=== PATIENT | female | born 1980 | race Caucasian/White ===

== ENCOUNTER → 2017-01-06 | Outpatient (CLI) | payer BC ==
[2017-01-07 07:42] LABS: THYROID PEROXIDASE (TPO) AB 15 IU/mL (0-34)
[2017-01-07 10:58] LABS: THYROGLOBULIN AB <1.0 IU/mL (0.0-0.9)
== END ==
LOC: OD 09:29
PROVIDERS: ATTEND Internal Medicine
DX: Z86.39 Personal history of other endocrine, nutritional and metabolic disease (principal)
CPT/HCPCS: 36415; 84443; 86376

== ENCOUNTER 2017-02-18 19:42 | Emergency (ER) | payer BC ==
[2017-02-18 19:50] VITALS: BP 144/74
[2017-02-18] MEDS ORDERED: PREDNISONE 20 MG TABLET PO ONE (19:57)
[2017-02-18] MEDS ORDERED: FAMOTIDINE 20 MG TABLET PO ONE (19:57)
[2017-02-18] MEDS ORDERED: DIPHENHYDRAMINE HCL 50 MG CAPSULE PO ONE (19:57)
--- NOTE | 2017-02-18 20:03 | ER Document Report ---
ED General - General Chief Complaint: Allergic Reaction Stated Complaint: ALLERGIC REACTION TRAVEL OUTSIDE OF THE [place] 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 Patient felt the insect sting her in the center of her back. Patient carries an EpiPen in her car and her purse quickly gave herself an intramuscular shot in her thigh. Patient presents now with only a mild lump in the upper part of her back negative for respiratory issues no throat swelling no mouth swelling no abdominal pain nausea or vomiting. - Related Data Allergies/Adverse Reactions: bee venom protein (honey bee) Allergy (Verified 02/18/17 19:52) Home Medications: Current Home Medications Amitriptyline HCl 25 mg PO DAILY 02/18/17 [History] Desog-E.estradiol/E.estradiol [Azurette 28 Day Tablet] 1 tab PO DAILY 02/18/17 [ History] Rizatriptan Benzoate [Rizatriptan] 1 tab PO PRN PRN 02/18/17 [History] Past Medical History - Social History Smoking Status: Unknown if Ever Smoked Family History: Reviewed & Not Pertinent Patient has suicidal ideation: No Patient has homicidal ideation: No Renal/ Medical History: Denies: Hx Peritoneal Dialysis Review of Systems - Review of Systems Constitutional: No symptoms reported EENT: No symptoms reported. denies: Throat swelling, Mouth swelling Cardiovascular: No symptoms reported. denies: Palpitations Respiratory: No symptoms reported. denies: Cough, Wheezing Gastrointestinal: denies: Diarrhea, Nausea, Vomiting Musculoskeletal: Other - minimal pain at site of sting Skin: denies: Rash Hematologic/Lymphatic: denies: Enlarged lymph nodes Neurological/Psychological: denies: Tingling Physical Exam - Vital signs Vitals: Temp Pulse Resp BP Pulse Ox 97.6 F 90 18 144/74 H 100 02/18/17 19:46 02/18/17 19:46 02/18/17 19:46 02/18/17 19:46 02/18/17 19:46 Interpretation: Normal - General General appearance: Appears well, Alert - HEENT Head: Normocephalic, Atraumatic Eyes: Normal Pupils: PERRL - Respiratory Respiratory status: No respiratory distress Chest status: Nontender Breath sounds: Normal Chest palpation: Normal - Cardiovascular Rhythm: Regular Heart sounds: Normal auscultation Murmur: No - Abdominal Inspection: Normal Distension: No distension Bowel sounds: Normal Tenderness: Nontender Organomegaly: No organomegaly - Back Back: Normal, Nontender Notes: Mild isolated area mild induration no overlying skin changes, no stinger noted in wound - Extremities General upper extremity: Normal inspection, Nontender, Normal color, Normal ROM , Normal temperature General lower extremity: Normal inspection, Nontender, Normal color, Normal ROM , Normal temperature, Normal weight bearing. No: Zev's sign - Neurological Neuro grossly intact: Yes Cognition: Normal Orientation: AAOx4 [place] Coma Scale Eye Opening: Spontaneous Deann Coma Scale Verbal: Oriented [place] Coma Scale Motor: Obeys Commands [place] Coma Scale Total: 15 Speech: Normal Motor strength normal: LUE, RUE, LLE, RLE Sensory: Normal - Psychological Associated symptoms: Normal affect, Normal mood - Skin Skin Temperature: Warm Skin Moisture: Dry Skin Color: Normal Course - Re-evaluation Re-evalutation: 02/18/17 20:00 Appearing female presents after minor envenomation by wasp. Patient herself EpiPen. She is now an hour and a half status post examination. Patient given oral Benadryl, famotidine, prednisone in the emergency department. Patient feeling much improved will be discharged home with prescription for additional EpiPen - Vital Signs Vital signs: Temp Pulse Resp BP Pulse Ox 97.6 F 90 18 144/74 H 100 02/18/17 19:46 02/18/17 19:46 02/18/17 19:46 02/18/17 19:46 02/18/17 19:46 Discharge - Discharge Clinical Impression: Allergic reaction Qualifiers: Encounter type: initial encounter Qualified Code(s): T78.40XA - Allergy, unspecified, initial encounter Instructions: Anaphylaxis Kit ([facility]) Prescriptions: Epinephrine [Epipen 2-Garrett] 0.3 mg IM ONCE PRN #1 ml PRN Reason: Allergic reaction
== END 2017-02-18 20:05 | disposition home or self-care (01) ==
LOC: ER 19:42
DX: T63.461A Toxic effect of venom of wasps, accidental (unintentional), initial encounter (principal); T78.40XA Allergy, unspecified, initial encounter; Z79.899 Other long term (current) drug therapy; W57.XXXA Bitten or stung by nonvenomous insect and other nonvenomous arthropods, initial encounter
CPT/HCPCS: 99283; J7512

== ENCOUNTER → 2017-11-02 | Outpatient (CLI) | payer BC ==
[2017-11-02 08:23] LABS: ABSOLUTE BASOPHILS # (AUTO) 0.1 10^3/uL (0.0-0.2); ABSOLUTE EOSINOPHILS # (AUTO) 0.1 10^3/uL (0.0-0.6); ABSOLUTE LYMPHOCYTES (AUTO) 2.1 10^3/uL (0.5-4.7); ABSOLUTE MONOCYTES (AUTO) 0.4 10^3/uL (0.1-1.4); ABSOLUTE NEUT (AUTO) 2.6 10^3/uL (1.7-8.2); EOSINOPHILS % (AUTO) 2.4 % (0-6); HEMATOCRIT 39.2 % (36.0-47.0); HEMOGLOBIN 13.7 g/dL (12.0-15.5); LYMPHOCYTES % (AUTO) 39.8 % (13-45); MEAN CORPUSCULAR HEMOGLOBIN 30.3 pg (27.0-33.4); MEAN CORPUSCULAR VOLUME 87 fl (80-97); MONOCYTES % (AUTO) 8.3 % (3-13); PLATELET COUNT 346 10^3/uL (150-450); RED BLOOD COUNT 4.52 10^6/uL (3.72-5.28); RED CELL DISTRIBUTION WIDTH 12.6 % (11.5-14.0); SEGMENTED NEUTROPHILS % (AUTO) 48.5 % (42-78); TOTAL CELLS COUNTED % (AUTO) 100 %; WHITE BLOOD COUNT 5.3 10^3/uL (4.0-10.5)
[2017-11-02 08:45] LABS: ALANINE AMINOTRANSFERASE 39 U/L (9-52); ALBUMIN 4.2 g/dL (3.5-5.0); ALKALINE PHOSPHATASE 60 U/L (38-126); ANION GAP 12 (5-19); ASPARTATE AMINO TRANSFERASE 38 U/L (14-36); BILIRUBIN,DIRECT 0.2 mg/dL (0.0-0.4); BILIRUBIN,TOTAL 0.5 mg/dL (0.2-1.3); BLOOD UREA NITROGEN 8 mg/dL (7-20); CALCIUM 10.1 mg/dL (8.4-10.2); CARBON DIOXIDE 25 mmol/L (22-30); CHLORIDE 104 mmol/L (98-107); CHOLESTEROL 210.16 mg/dL (0-200); GLUCOSE 93 mg/dL (75-110); POTASSIUM 5.1 mmol/L (3.6-5.0); SODIUM 140.7 mmol/L (137-145); TRIGLYCERIDES 203 mg/dL (<150)
[2017-11-02 08:56] LABS: DIRECT LDL 108 mg/dL (<100)
[2017-11-02 08:58] LABS: VLDL CHOLESTEROL 40.6 mg/dL (10-31)
== END ==
LOC: OD 07:45
PROVIDERS: ATTEND Family Medicine Geriatric Medicine
DX: G43.909 Migraine, unspecified, not intractable, without status migrainosus (principal); E05.00 Thyrotoxicosis with diffuse goiter without thyrotoxic crisis or storm; E78.1 Pure hyperglyceridemia; E66.3 Overweight; Z79.899 Other long term (current) drug therapy
CPT/HCPCS: 36415; 80053; 80061; 84443; 85025

== ENCOUNTER → 2017-11-13 | Outpatient (CLI) | payer BC ==
[2017-11-13 09:38] LABS: POTASSIUM 5.1 mmol/L (3.6-5.0)
== END ==
LOC: OD 08:46
PROVIDERS: ATTEND Family Medicine Geriatric Medicine
DX: E87.5 Hyperkalemia (principal); E78.5 Hyperlipidemia, unspecified; R74.8 Abnormal levels of other serum enzymes; Z79.899 Other long term (current) drug therapy
CPT/HCPCS: 36415; 84132; 84450

== ENCOUNTER → 2018-04-23 | Outpatient (CLI) | payer BC | LOC: OD 07:25 | PROVIDERS: ATTEND Family Medicine Geriatric Medicine | DX: E87.5 Hyperkalemia (principal); Z79.899 Other long term (current) drug therapy | CPT/HCPCS: 36415; 84132 ==

== ENCOUNTER → 2018-08-24 | Outpatient (CLI) | payer BC ==
[2018-08-24 08:07] LABS: ABSOLUTE BASOPHILS # (AUTO) 0.1 10^3/uL (0.0-0.2); ABSOLUTE EOSINOPHILS # (AUTO) 0.1 10^3/uL (0.0-0.6); ABSOLUTE LYMPHOCYTES (AUTO) 2.1 10^3/uL (0.5-4.7); ABSOLUTE MONOCYTES (AUTO) 0.4 10^3/uL (0.1-1.4); ABSOLUTE NEUT (AUTO) 2.1 10^3/uL (1.7-8.2); BASOPHILS % (AUTO) 1.4 % (0-2); HEMATOCRIT 39.2 % (36.0-47.0); HEMOGLOBIN 13.3 g/dL (12.0-15.5); LYMPHOCYTES % (AUTO) 43.7 % (13-45); MEAN CORPUSCULAR HEMOGLOBIN 29.7 pg (27.0-33.4); MEAN CORPUSCULAR VOLUME 87 fl (80-97); PLATELET COUNT 363 10^3/uL (150-450); RED BLOOD COUNT 4.49 10^6/uL (3.72-5.28); RED CELL DISTRIBUTION WIDTH 12.6 % (11.5-14.0); SEGMENTED NEUTROPHILS % (AUTO) 43.9 % (42-78); TOTAL CELLS COUNTED % (AUTO) 100 %; WHITE BLOOD COUNT 4.7 10^3/uL (4.0-10.5)
[2018-08-24 08:24] LABS: ALANINE AMINOTRANSFERASE 36 U/L (9-52); ANION GAP 11 (5-19); BLOOD UREA NITROGEN 6 mg/dL (7-20); CALCIUM 9.6 mg/dL (8.4-10.2); CARBON DIOXIDE 24 mmol/L (22-30); CHLORIDE 105 mmol/L (98-107); CHOLESTEROL 173.08 mg/dL (0-200); GLUCOSE 81 mg/dL (75-110); POTASSIUM 4.5 mmol/L (3.6-5.0); SODIUM 140.4 mmol/L (137-145); TRIGLYCERIDES 119 mg/dL (<150)
[2018-08-24 08:45] LABS: DIRECT LDL 99 mg/dL (<100)
== END ==
LOC: OD 07:09
PROVIDERS: ATTEND Family Medicine Geriatric Medicine
DX: E78.5 Hyperlipidemia, unspecified (principal); E87.5 Hyperkalemia; Z79.899 Other long term (current) drug therapy
CPT/HCPCS: 36415; 80048; 80061; 84443; 84460; 85025

== ENCOUNTER → 2019-01-28 | Outpatient (CLI) | payer BC | LOC: OD 10:55 | PROVIDERS: ATTEND Family Medicine Geriatric Medicine | DX: E05.00 Thyrotoxicosis with diffuse goiter without thyrotoxic crisis or storm (principal); Z79.899 Other long term (current) drug therapy | CPT/HCPCS: 36415; 84443 ==

== ENCOUNTER → 2019-08-09 | Outpatient (CLI) | payer BC ==
[2019-08-09 08:09] LABS: ABSOLUTE BASOPHILS # (AUTO) 0.1 10^3/uL (0.0-0.2); ABSOLUTE EOSINOPHILS # (AUTO) 0.1 10^3/uL (0.0-0.6); ABSOLUTE LYMPHOCYTES (AUTO) 2.1 10^3/uL (0.5-4.7); ABSOLUTE MONOCYTES (AUTO) 0.4 10^3/uL (0.1-1.4); ABSOLUTE NEUT (AUTO) 2.6 10^3/uL (1.7-8.2); BASOPHILS % (AUTO) 1.2 % (0-2); EOSINOPHILS % (AUTO) 2.6 % (0-6); HEMATOCRIT 39.6 % (36.0-47.0); HEMOGLOBIN 13.5 g/dL (12.0-15.5); LYMPHOCYTES % (AUTO) 39.9 % (13-45); MEAN CORPUSCULAR HEMOGLOBIN 29.8 pg (27.0-33.4); MEAN CORPUSCULAR HGB CONC 34.1 g/dL (32.0-36.0); MEAN CORPUSCULAR VOLUME 88 fl (80-97); MONOCYTES % (AUTO) 7.3 % (3-13); PLATELET COUNT 321 10^3/uL (150-450); RED BLOOD COUNT 4.53 10^6/uL (3.72-5.28); RED CELL DISTRIBUTION WIDTH 12.6 % (11.5-14.0); TOTAL CELLS COUNTED % (AUTO) 100 %; WHITE BLOOD COUNT 5.2 10^3/uL (4.0-10.5)
[2019-08-09 08:41] LABS: ANION GAP 9 (5-19); ASPARTATE AMINO TRANSFERASE 26 U/L (14-36); BLOOD UREA NITROGEN 10 mg/dL (7-20); CALCIUM 9.7 mg/dL (8.4-10.2); CARBON DIOXIDE 26 mmol/L (22-30); CHLORIDE 103 mmol/L (98-107); GLUCOSE 99 mg/dL (75-110); POTASSIUM 4.5 mmol/L (3.6-5.0)
== END ==
LOC: OD 07:03
PROVIDERS: ATTEND Family Medicine Geriatric Medicine
DX: E05.00 Thyrotoxicosis with diffuse goiter without thyrotoxic crisis or storm (principal); E78.5 Hyperlipidemia, unspecified; G43.909 Migraine, unspecified, not intractable, without status migrainosus
CPT/HCPCS: 36415; 80048; 84443; 84450; 84460; 85025

== ENCOUNTER 2019-11-13 17:56 | Emergency (ER) | payer BC ==
--- NOTE | 2019-11-13 18:44 | ER Document Report ---
ED Medical Screen (RME) - General Chief Complaint: Dog Bite Stated Complaint: DOG BITE/LEFT INDEX FINGER Time Seen by Provider: 11/13/19 18:42 Primary Care Provider: DEREJE SPEAR MD [Primary Care Provider] - Follow up as needed Mode of Arrival: Ambulatory Information source: Patient Notes: 39-year-old female presented to ED for dog bite to the left index finger. She states she just got a new dog and a new dog in the old dog were having her first and the old dog bit the new dog. She states she was trying to clean the new dog up when the dog bit her. She does have a large laceration to the left index finger. She states her jaw and her immunizations are up-to-date. Bleeding is under control at this time. She will probably need a few sutures to hold this together after she gets an x-ray to ensure there is no fracture. I have greeted and performed a rapid initial assessment of this patient. A comprehensive ED assessment and evaluation of the patient, analysis of test results and completion of medical decision making process will be conducted by an additional ED providers. TRAVEL OUTSIDE OF THE [place] IN LAST 30 DAYS: No - Related Data Allergies/Adverse Reactions: venom-wasp Allergy (Intermediate, Verified 11/13/19 18:21) Hives Home Medications: amitriptyline Past Medical History - Social History Chew tobacco use (# tins/day): No Frequency of alcohol use: Social Drug Abuse: None Neurological Medical History: Reports: Hx Migraine Renal/ Medical History: Denies: Hx Peritoneal Dialysis Physical Exam - Vital signs Vitals: Temp Pulse Resp BP Pulse Ox 97.7 F 66 18 120/67 100 11/13/19 18:02 11/13/19 18:02 11/13/19 18:02 11/13/19 18:02 11/13/19 18:02 Course - Vital Signs Vital signs: Temp Pulse Resp BP Pulse Ox 97.7 F 66 18 120/67 100 11/13/19 18:22 11/13/19 18:02 11/13/19 18:02 11/13/19 18:02 11/13/19 18:02 Doctor's Discharge - Discharge Referrals: DEREJE SPEAR MD [Primary Care Provider] - Follow up as needed
--- NOTE | 2019-11-13 19:06 | RADIOLOGY REPORT (SQ) ---
EXAM DESCRIPTION: FINGER LEFT IMAGES COMPLETED DATE/TIME: 11/13/2019 6:56 pm REASON FOR STUDY: Dog bite to the left index finger COMPARISON: None. NUMBER OF VIEWS: Three views. TECHNIQUE: AP, lateral, and oblique images acquired of the left second finger. LIMITATIONS: None. FINDINGS: MINERALIZATION: Normal. BONES: Nondisplaced distal tuft fracture, distal phalanx, second digit. Soft tissue swelling and in jury. SOFT TISSUES: No soft tissue swelling. No foreign body. OTHER: No other significant finding. IMPRESSION: 1. Nondisplaced distal tuft fracture, distal phalanx, second digit. TECHNICAL DOCUMENTATION: JOB ID: [id number] 2010 [employer]- All Rights Reserved Reading location - IP/workstation name: [email or web address]
[2019-11-13] MEDS ORDERED: LIDOCAINE 1% INJ-PF (10 MG/ML) 30 ML SDV INJ ONE (20:44)
[2019-11-13] MEDS ORDERED: HYDROCODONE/ACETAMINOPHEN 5-325 MG TABLET PO ONE (20:44)
[2019-11-13] MEDS ORDERED: ACETAMINOPHEN 325 MG TABLET PO ONE (20:45)
[2019-11-13] MEDS ORDERED: IBUPROFEN 600 MG TABLET PO ONE (20:45)
--- NOTE | 2019-11-13 20:51 | ER Document Report ---
ED General - General Chief Complaint: Dog Bite Stated Complaint: DOG BITE/LEFT INDEX FINGER Time Seen by Provider: 11/13/19 18:42 Primary Care Provider: DEREJE SPEAR MD [Primary Care Provider] - Follow up as needed TORIE JACKSON DO [ACTIVE STAFF] - Follow up in 3-5 days Mode of Arrival: Ambulatory Notes: 39-year-old healthy female presents the emergency department for a dog bite on her left index finger sustained prior to arrival. Her dogs got into a fight and she was trying to clean up 1 of the dogs wounds when the dog nipped at her and bit her. There was some bleeding but bleeding has stopped. Patient is able to move her finger and has intact sensation. Tetanus is current. No other complaints TRAVEL OUTSIDE OF THE [place] IN LAST 30 DAYS: No - Related Data Allergies/Adverse Reactions: venom-wasp Allergy (Intermediate, Verified 11/13/19 18:21) Hives Home Medications: amitriptyline Past Medical History - General Information source: Patient - Social History Smoking Status: Never Smoker Chew tobacco use (# tins/day): No Frequency of alcohol use: Social Drug Abuse: None Family History: Reviewed & Not Pertinent Patient has suicidal ideation: No Patient has homicidal ideation: No Neurological Medical History: Reports: Hx Migraine Renal/ Medical History: Denies: Hx Peritoneal Dialysis Review of Systems - Review of Systems Constitutional: No symptoms reported EENT: No symptoms reported Cardiovascular: No symptoms reported Respiratory: No symptoms reported Gastrointestinal: No symptoms reported Genitourinary: No symptoms reported Female Genitourinary: No symptoms reported Musculoskeletal: See HPI Skin: See HPI Hematologic/Lymphatic: No symptoms reported Neurological/Psychological: No symptoms reported Physical Exam - Vital signs Vitals: Temp Pulse Resp BP Pulse Ox 97.7 F 66 18 120/67 100 11/13/19 18:02 11/13/19 18:02 11/13/19 18:02 11/13/19 18:02 11/13/19 18:02 - Notes Notes: PHYSICAL EXAMINATION: Reviewed vital signs and charting by RN GENERAL: Alert, interacts well. No acute distress. HEAD: Normocephalic, atraumatic. EYES: Pupils equal and round. Extraocular movements intact. ENT: Oral mucosa moist NECK: Full range of motion. Trachea midline. EXTREMITIES: Moves all 4 extremities spontaneously. Tenderness to palpation over the left index finger and area of the laceration no edema, No cyanosis. F lexor and extensor tendons intact left index finger. PSYCH: Normal affect, normal mood. SKIN: Warm, dry, normal turgor. 2 cm laceration on the medial aspect of the distal phalanx of the left index finger. There is nail involvement but nail is grossly intact in the nailbed is uninvolved. No bleeding noted Course - Re-evaluation Re-evalutation: 11/13/19 20:54 Patient is well-appearing in no acute distress. X-ray shows a distal tuft fracture of the left index finger. Plan is to perform primary closure with 5-0 Ethilon, placed the finger in splint, and put her on prophylactic antibiotics. Patient is current tetanus. I will give her referral for the surgery clinic. 11/13/19 22:16 Primary closure performed on the left index finger. Digital block was performed using lidocaine 1% without epinephrine. Patient tolerated procedure well. Patient with a normal distal neurovascular exam post procedure. Patient with flexor and extensor tendons intact. Patient has been instructed to follow-up with orthopedics in the next 3 to 5 days for the tuft fracture. Able for discharge. - Vital Signs Vital signs: Temp Pulse Resp BP Pulse Ox 97.7 F 66 18 120/67 100 11/13/19 18:22 11/13/19 18:02 11/13/19 18:02 11/13/19 18:02 11/13/19 18:02 Procedures - Laceration/Wound Repair Left Hand 2nd digit Wound length (cm): 3 Wound's Depth, Shape: Irregular Laceration pre-procedure: Sterile PPE donned Anesthetic type: 1% Lidocaine Wound explored: Clean Wound Debrided: Minimal Wound Repaired With: Sutures Suture Size/Type: 5:0, Ethilon Post-procedure wound care: Sterile dressing applied, Splint applied Post-procedure NV exam normal: Yes Discharge - Discharge Clinical Impression: Closed fracture of tuft of distal phalanx of finger, Laceration Condition: Good Disposition: HOME, SELF-CARE Additional Instructions: Please return to your primary doctor, the ED, or an urgent care in 7 days for suture removal. Return immediately if you develop spreading redness around the wound, pus from the wound, worsening pain, or a fever of >101. Keep the area clean and dry. Wash gently with soap and water twice daily and cover with antibiotic ointment. Because you have an open fracture you are being put on a 5-day course of Augmentin for prophylaxis. I have also given you information for the surgery clinic. Please call them in the next 48 to 72 hours for further guidance. Prescriptions: Amoxicillin/Potassium Clav [Augmentin 875-125 Tablet] 1 tab PO Q12 #10 tablet Referrals: DEREJE SPEAR MD [Primary Care Provider] - Follow up as needed TORIE JACKSON DO [ACTIVE STAFF] - Follow up in 3-5 days
[2019-11-13] MEDS ORDERED: HYDROCODONE/ACETAMINOPHEN 5-325 MG (6 TAB/ER DISP) PO PRN (22:13)
[2019-11-13 22:46] VITALS: BP 128/78
== END 2019-11-13 22:45 | disposition home or self-care (01) ==
LOC: ER 17:56
DX: S62.661A Nondisplaced fracture of distal phalanx of left index finger, initial encounter for closed fracture (principal); S61.351A Open bite of left index finger with damage to nail, initial encounter; W54.0XXA Bitten by dog, initial encounter; Y93.K9 Activity, other involving animal care; Y92.009 Unspecified place in unspecified non-institutional (private) residence as the place of occurrence of the external cause; Z79.899 Other long term (current) drug therapy; Z91.038 Other insect allergy status
CPT/HCPCS: 99283; 73140; 12002; J3490

== ENCOUNTER → 2019-12-21 | Outpatient (CLI) | payer BC | LOC: OD 09:28 | PROVIDERS: ATTEND Family Medicine Geriatric Medicine | DX: E05.00 Thyrotoxicosis with diffuse goiter without thyrotoxic crisis or storm (principal); Z79.899 Other long term (current) drug therapy | CPT/HCPCS: 36415; 84443 ==

== ENCOUNTER → 2020-01-13 | Outpatient (CLI) | payer BC ==
--- NOTE | 2020-01-13 14:32 | RADIOLOGY REPORT (SQ) ---
EXAM DESCRIPTION: U/S THYROID/SFT TISS HD NECK IMAGES COMPLETED DATE/TIME: 01/13/2020 8:47 am REASON FOR STUDY: HYPOTHYROIDISM, UNSPEC (E03.9) E03.9 HYPOTHYROIDISM, UNSPECIFIED COMPARISON: None. TECHNIQUE: Dynamic and static cadena-scale images acquired of the thyroid gland. Selected additional c olor/power Doppler images recorded. All images stored to PACS. LIMITATIONS: None. FINDINGS: RIGHT LOBE: The right lobe of the thyroid gland measures 4.9 x 1.8 x 1.4 cm and it has a h omogeneous echotexture. There is no nodule or hyperemia. LEFT LOBE: The left lobe of the thyroid gland measures 3.9 x 1.2 x 1 cm. In the mid to inferior port ion of the lobe there is a 6 x 6 x 4 mm solid, hypoechoic nodule that is wider than tall, has smooth margins, and contains no internal echogenic foci (TR4). ISTHMUS: The isthmus of the thyroid gland measures 2.8 mm in AP diameter and it has a homogeneous ech otexture. OTHER: No other finding. IMPRESSION: 6 x 6 x 4 mm TR4 nodule in the mid to inferior portion of the left lobe of the thyroid gland. Since the nodule is less than 1 cm no routine follow-up is required per the ACR TI-RADS crite darnell. TECHNICAL DOCUMENTATION: JOB ID: [id number] 2010 [employer]- All Rights Reserved Reading location - IP/workstation name: [email or web address]
== END ==
LOC: RAD 07:36
PROVIDERS: ATTEND Family Medicine Geriatric Medicine
DX: E03.9 Hypothyroidism, unspecified (principal); E04.1 Nontoxic single thyroid nodule
CPT/HCPCS: 76536